=== PATIENT | male | born 1985 | race African-American/Black ===

== ENCOUNTER → 2025-10-31 15:33 | Outpatient (CLI) | payer OTHER, SELFPAY ==
--- NOTE | 2025-10-31 15:43 | DI.NM.S_ITS ---
PROCEDURE: NM EXERCISE TREADMILL NON NUC COMPARISON: None INDICATIONS: Fatigue. FINDINGS: Rest ECG sinus rhythm, T wave inversions V5 and V6, 70 bpm, 146/82. [facility] protocol 9:32, maximum heart rate 165 bpm (91% peak predicted), peak blood pressure 230/110, 10.1 METS, KERVIN +22%. Exercise ECG sinus tachycardia, no ST segment changes or arrhythmia. The patient did not report exercise-induced chest discomfort. IMPRESSION: Low risk study for ischemia. No evidence of exercise-induced ECG changes or arrhythmia. Baseline hypertension with elevated blood pressure response to exercise. Normal heart rate response. Reduced exercise capacity. Dictated by: Rosa Pennington D.O. on 11/01/2025 at 16:31 Approved by: Rosa Pennington D.O. on 11/01/2025 at 16:36
== END ==
LOC: NUCM 15:34
PROVIDERS: Referring Provider Student in an Organized Health Care Education/Training Program; Visit Provider Student in an Organized Health Care Education/Training Program
DX: R00.2 Palpitations (principal)
CPT/HCPCS: 93017